=== PATIENT | male | born 1985 | race Caucasian/White ===

== ENCOUNTER 2022-05-06 12:26 | Emergency (ER) | payer BC, SELFPAY ==
[2022-05-06] VITALS (11 sets, daily range): BP systolic 108–124; BP diastolic 62–82; PULSE 50–58; RESP 16–18; TEMP 37.3; O2SAT 95–99; BMI 21.9
--- NOTE | 2022-05-06 12:38 | CRLHL7_ITS ---
For Patients: As a result of the Cures Act, medical imaging exams and procedure reports are released immediately into your electronic medical record. You may view this report before your referring provider. If you have questions, please contact your health care provider. Indication: Injury Technique: Two views left humerus Comparison: Chest CT 05/06/2022 Findings: Normal articulation of the glenohumeral joint. No dislocation or acute fractures. Multiple left-sided rib fractures again seen. Dictated by Celeste Shaikh MD @ 05/06/2022 1:54:12 PM (Electronically Signed)
--- NOTE | 2022-05-06 12:38 | CRLHL7_ITS ---
For Patients: As a result of the Cures Act, medical imaging exams and procedure reports are released immediately into your electronic medical record. You may view this report before your referring provider. If you have questions, please contact your health care provider. INDICATION: Pain. TECHNIQUE: Chest CT scan with 75 cc of Isovue-370 given intravenously. FINDINGS: No mediastinal or hilar adenopathy. No axillary adenopathy. No central pulmonary emboli. The lungs show a calcified granuloma in the lateral aspect of the left upper lobe. Trace left-sided pneumothorax. No focal abnormalities identified in the visualized portions of the liver, pancreas, adrenal glands, and the upper portion the kidneys. Multiple granulomas in the spleen. Fractures of the posterior aspects of the left 3rd through 7th ribs. IMPRESSION: 1. Fracture of the posterior aspects of the left 3rd-7th ribs. 2. Trace left-sided pneumothorax. Dictated by Radu Shaikh MD @ 05/06/2022 1:50:55 PM Please note that all CT scans at this facility use dose modulation, iterative reconstruction, and/or weight-based dosing when appropriate to reduce radiation dose to as low as reasonably achievable. Dictated by: Radu Shaikh MD @ 05/06/2022 13:51:02 (Electronically Signed)
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
[2022-05-06] MEDS: HYDROmorphone 0.5 mg/0.5 ml inj 1 MG IVP (13:13)
[2022-05-06] MEDS: ONDANSETRON 2 MG/ML inj 4 MG IVP (13:13)
[2022-05-06] MEDS: 0.9 % SODIUM CHLORIDE 1000 ml 1,000 ML 6000 ML IV (13:13)
--- NOTE | 2022-05-06 15:01 | ED.NURSE ---
Patient transfered to [facility] via [facility] ambulance. Cell phone, clothes, and shoes sent with patient. Report given to EMS crew. All questions answered. patient voided prior to leaving ER.
== END 2022-05-06 14:50 | disposition other institution (70) ==
PROVIDERS: Emergency Provider Family Medicine; PCP Family Medicine
DX: S22.42XA Multiple fractures of ribs, left side, initial encounter for closed fracture (principal); S40.012A Contusion of left shoulder, initial encounter; V29.3XXA Motorcycle rider (driver) (passenger) injured in unspecified nontraffic accident, initial encounter; Y93.59 Activity, other involving other sports and athletics played individually; Y92.39 Other specified sports and athletic area as the place of occurrence of the external cause
CPT/HCPCS: 71260; 73030; 96374; 96375; 99283; 99284; 99291; J1170; J2405; J7030; Q9967

== ENCOUNTER 2024-08-30 09:34 | Outpatient (CLI) | payer OTHER, SELFPAY ==
[2024-08-30 13:43] LABS: Strep A DNA Probe* DETECTED (Not Detectd)
== END 2024-08-30 09:35 | disposition home or self-care (01) ==
PROVIDERS: PCP Nurse Practitioner Family; Visit Provider Nurse Practitioner Family
DX: J02.9 Acute pharyngitis, unspecified (principal)
CPT/HCPCS: 85025; 86140; 87651